=== PATIENT | female | born 1975 | race Caucasian/White ===

== ENCOUNTER 2018-09-30 05:46 | Day surgery (SDC) | payer BC ==
[2018-09-28 12:04] LABS: BASOPHILS # (AUTO) 0.1 X10'3 (0-0.2); BASOPHILS % (AUTO) 1.3 % (0-1); EOSINOPHILS # (AUTO) 0.3 X10'3 (0-0.9); EOSINOPHILS % (AUTO) 3.9 % (0-6); LYMPHOCYTES # (AUTO) 1.5 X10'3 (1.1-4.8); MEAN CORPUSCULAR HEMOGLOBIN 30.9 PG (27.0-31.0); MEAN CORPUSCULAR HGB CONC 34.4 g/dL (33.0-36.5); MEAN CORPUSCULAR VOLUME 89.7 FL (78-98); MONOCYTES # (AUTO) 0.4 X10'3 (0-0.9); MONOCYTES % (AUTO) 4.7 % (2-12); NEUTROPHILS # (AUTO) 6.2 X10'3 (1.8-7.7); NEUTROPHILS % (AUTO) 72.1 % (42-75); PRE OP HEMATOCRIT 41.5 % (35.0-45.0); PRE OP HEMOGLOBIN 14.3 g/dL (12.0-16.0); PRE OP PLATELET COUNT 265 X10'3 (140-440); RED BLOOD COUNT 4.63 X10'6 (4.20-5.60); RED CELL DISTRIBUTION WIDTH 12.7 % (11.5-14.5)
[2018-09-28 12:14] LABS: HCG SERUM QL NEGATIVE
[2018-09-28 12:16] LABS: ALBUMIN 3.7 G/DL (3.4-5.0); ALBUMIN/GLOBULIN RATIO 1.1 (1.1-1.5); ALKALINE PHOSPHATASE 85 IU/L (46-116); BLOOD UREA NITROGEN 7 MG/DL (7-18); BUN/CREATININE RATIO 8.2 (6.6-38.0); CALCIUM 8.9 MG/DL (8.5-10.1); CHLORIDE 108 MMOL/L (99-107); CREATININE 0.85 MG/DL (0.40-0.90); PRE OP ALT 62 U/L (30-65); PRE OP ANION GAP 9 (8-16); PRE OP AST 32 U/L (10-37); PRE OP BILIRUB, TOTAL 0.4 MG/DL (0.0-1.0); PRE OP GLUCOSE 96 MG/DL (70-104); PRE OP POTASSIUM 3.9 MMOL/L (3.4-5.1); PRE OP SODIUM 140 MMOL/L (135-145); TOTAL CARBON DIOXIDE 22.6 MMOL/L (24-32); eGFR 73 ML/MIN
[~2018-09-30] VITALS: Ht 170.2 cm; Wt 86.2 kg
[2018-09-30] VITALS (22 sets, daily range): BP systolic 95–137; BP diastolic 57–84
[~2018-09-30 05:46] MED LIST: ACET-2119 PO; SERT100T PO; albuterol 2.5 MG/3 ML nebule NEB ONE; ceFOXitin 2 GM ADDVANTGE BAG 50 ML IV ONE; famotidine 20mg tablet PO ONE; ringers solution, lacted 1,000 ML IV SCH
[2018-09-30] MEDS ORDERED: LIDOcaine 1% (10mg/ml) 2ml vial ONE (05:58)
[2018-09-30] MEDS ORDERED: ROPIVAcaine 0.5% (5mg/ml) 30ml vial ONE (06:36)
[2018-09-30] MEDS ORDERED: LIDOcaine 1% 30ml preserv. free vial ONE (06:36)
[2018-09-30] MEDS ORDERED: epiNEPHrine 1 mg/ml inj ONE (06:36)
[2018-09-30] MEDS ORDERED: midazolam 2 mg/2 ml injection ONE (07:21)
[2018-09-30] MEDS ORDERED: fentaNYL /PF 50mcg/ml 5ml ampule ONE (07:21)
[2018-09-30] MEDS ORDERED: ketorolac tromethamine 15mg/ml inj. ONE (07:45)
[2018-09-30] MEDS ORDERED: sevoflurane 250ml liquid IH ONE (07:45)
[2018-09-30] MEDS ORDERED: LIDOcaine 2% (20mg/ml) 5ml vial ONE (08:14)
[2018-09-30] MEDS ORDERED: fluoroscein sod 10% (100mg/ml) 5ml vial ONE (08:14)
[2018-09-30] MEDS ORDERED: dexamethasone sod phosphate 4mg/ml inj. ONE (08:14)
[2018-09-30] MEDS ORDERED: rocuronium 10mg/ml inj IV ONE (08:14)
[2018-09-30] MEDS ORDERED: propofol inj 20 ML IV ONE (08:14)
[2018-09-30] MEDS ORDERED: ondansetron/PF 4mg/2ml inj ONE (08:14)
[2018-09-30] MEDS ORDERED: ringers solution, lacted 1,000 ML IV SCH (08:43)
[2018-09-30] MEDS ORDERED: HYDROmorphone inj. 0.5 MG/0.5 ML DISP.SYRIN IV PRN (08:45)
[2018-09-30] MEDS ORDERED: ondansetron/PF 4mg/2ml inj IV PRN ×2 (08:45→09:55)
[2018-09-30] MEDS ORDERED: meperidine/PF 25mg/ml syringe IV PRN (08:45)
[2018-09-30] MEDS ORDERED: meperidine/PF 50mg/ml syringe ONE (09:51)
[2018-09-30] MEDS ORDERED: naloxone 0.4 mg/ml inj IV PRN (09:55)
[2018-09-30] MEDS ORDERED: normal saline 500ml IV soln 500 ML IV PRN (09:55)
[2018-09-30] MEDS ORDERED: temazepam 15mg capsule PO PRN (09:55)
[2018-09-30] MEDS ORDERED: LORazepam 2 mg/ml vial IV PRN (09:55)
[2018-09-30] MEDS ORDERED: CADD PCA waste documentation MC PRN (09:55)
[2018-09-30] MEDS ORDERED: metoclopramide 5 mg/ml inj IV PRN (09:55)
[2018-09-30] MEDS ORDERED: diphenhydrAMINE 50 mg/ml inj IV PRN (09:55)
[2018-09-30] MEDS ORDERED: mag hydrox/Alum hydrox/simeth 30ml oral suspension PO PRN (09:55)
--- NOTE | 2018-09-30 10:03 | NUR ---
Received from OR via surgical bed, accompanied by Anesthesiologist Alex and report given by Anesthesiolgist. Pt VS stable, complaining of pain, bandaids x3 CDI, aragon catheter draining with bright yellow urine. Moves all extrems, IVF 100cc/hr, SCDs placed on patient. Mask to 10L.
[2018-09-30] MEDS: HYDROmorphone inj. 0.5 MG/0.5 ML DISP.SYRIN IV PRN ×3 (10:11→11:53)
[2018-09-30] MEDS ORDERED: albuterol 60 PUFF/8GM Inhaler IH ONE (10:23)
[2018-09-30] MEDS ORDERED: neostigmine methylsulfate 1 MG/ML 10ml vial ONE (10:23)
[2018-09-30] MEDS ORDERED: glycopyrrolate 0.2mg/ml inj ONE (10:23)
[2018-09-30] MEDS: meperidine/PF 25mg/ml syringe IV PRN ×3 (10:26→11:39)
[2018-09-30] MEDS ORDERED: acetaminophen 1,000mg/100ml IV 100 ML IV ONE (11:20)
--- NOTE | 2018-09-30 11:20 | NUR ---
Patient's pain difficult to control with Demerol and MD Ney called and orders received for tylenol IV piggyback. Will place orders and administer.
[2018-09-30] MEDS ORDERED: HYDR-3686 PO (11:55)
[2018-09-30] MEDS ORDERED: IBUP-1986 PO (11:56)
--- NOTE | 2018-09-30 12:03 | NUR ---
Report called to receiving nurse. Transferred via ortho bed. Belongings on bed with patient along with patient chart. Special Issues communicated to receiving nurse Tracie SON. Call light given to patient, BLL, at bedside, O2 at 3L, first set of VS stable. Lap sites remain CDI, parul pad remains with minimal drainage. All pain meds given were reported to RN, and we discussed the need for toradol floor dose. RN states she would administer.
[2018-09-30] MEDS: ketorolac trometh. 30mg/ml inj. IV PRN ×2 (12:14→17:30)
[2018-09-30] MEDS ORDERED: HYDROmorphone 1 mg/ml syringe IV ONE (12:40)
[2018-09-30] MEDS: ringers solution, lacted 1,000 ML IV SCH ×2 (13:21→17:30)
[2018-09-30] MEDS: simethicone 80mg chew tab PO SCH ×2 (13:21→17:30)
[2018-09-30] MEDS: traMADol 50MG tablet PO PRN ×2 (14:00→18:58)
--- NOTE | 2018-09-30 14:14 | NUR ---
Received pt from PACU via bed. Lap sites x 3 to abdomen with band aids CDI. Pt very tearful, moaning and groaning in pain. Administered toradol. 30 mins later, pt still states is in excrutiating pain. Spoke with Dr Skaggs who stated she does not want to start pt on HAND WEAVER, per pt request in pre-op. (Pt stated she becomes psychotic). Dilaudid 1 mg x 1 time dose administered. Educated pt and spouse on aragon, diet, activity and IS.
--- NOTE | 2018-09-30 18:30 | NUR ---
Problems reprioritized. Patient report given, questions answered & plan of care reviewed with hamida.
--- NOTE | 2018-09-30 18:31 | NUR ---
Patient in room ORTHO 4014. I have received report from ADELAIDA Hodges and had the opportunity to ask questions and assume patient care.
[2018-09-30] MEDS: HYDROmorphone/NS 1 mg/ml CADD 50 ML IV SCH ×3 (20:05→23:00)
[2018-09-30] MEDS: docusate sod 100mg capsule PO SCH (20:10)
[2018-09-30] MEDS ORDERED: sertraline 50mg tablet PO SCH (21:00)
[2018-10-01] MEDS: HYDROmorphone/NS 1 mg/ml CADD 50 ML IV SCH ×5 (01:00→09:00)
[2018-10-01] MEDS: ringers solution, lacted 1,000 ML IV SCH (01:48)
--- NOTE | 2018-10-01 06:13 | NUR ---
Problems reprioritized. Patient report given, questions answered & plan of care reviewed with ADELAIDA Hodges.
[2018-10-01 06:18] LABS: BASOPHILS # (AUTO) 0.1 X10'3 (0-0.2); BASOPHILS % (AUTO) 0.7 % (0-1); EOSINOPHILS # (AUTO) 0.3 X10'3 (0-0.9); EOSINOPHILS % (AUTO) 2.2 % (0-6); HEMATOCRIT 38.2 % (35.0-45.0); LYMPHOCYTES # (AUTO) 1.8 X10'3 (1.1-4.8); LYMPHOCYTES % (AUTO) 12.8 % (21-51); MEAN CORPUSCULAR HEMOGLOBIN 30.9 PG (27.0-31.0); MEAN CORPUSCULAR VOLUME 90.8 FL (78-98); MEAN PLATELET VOLUME 8.9 FL (7.4-10.4); MONOCYTES # (AUTO) 0.8 X10'3 (0-0.9); MONOCYTES % (AUTO) 5.6 % (2-12); NEUTROPHILS # (AUTO) 11.1 X10'3 (1.8-7.7); NEUTROPHILS % (AUTO) 78.7 % (42-75); PLATELET COUNT 260 X10'3 (140-440); RED CELL DISTRIBUTION WIDTH 12.7 % (11.5-14.5); WHITE BLOOD COUNT 14.1 X10'3 (4.5-11.0)
[2018-10-01 06:20] LABS: ALBUMIN 3.2 G/DL (3.4-5.0); ANION GAP 8 (8-16); BLOOD UREA NITROGEN 8 MG/DL (7-18); BUN/CREATININE RATIO 9.1 (6.6-38.0); CALCIUM 8.6 MG/DL (8.5-10.1); CHLORIDE 107 MMOL/L (99-107); CREATININE 0.88 MG/DL (0.40-0.90); GLUCOSE 100 MG/DL (70-104); SODIUM 140 MMOL/L (135-145); eGFR 70 ML/MIN
--- NOTE | 2018-10-01 06:23 | NUR ---
Patient in room ORTHO 4014. I have received report from Gilberto and had the opportunity to ask questions and assume patient care.
[2018-10-01 06:30] VITALS: BP 89/61
[2018-10-01] MEDS: docusate sod 100mg capsule PO SCH (07:27)
[2018-10-01] MEDS: simethicone 80mg chew tab PO SCH ×2 (07:27→13:41)
[2018-10-01] MEDS: traMADol 50MG tablet PO PRN (07:29)
[2018-10-01] MEDS ORDERED: acetaminophen 325mg tablet PO SCH (08:00)
[2018-10-01 09:30] VITALS: BP 94/57
[2018-10-01] MEDS: HYDROmorphone 2mg tablet PO PRN ×2 (10:38→14:38)
[2018-10-01] MEDS ORDERED: CADD PCA waste documentation MC PRN (11:25)
--- NOTE | 2018-10-01 11:38 | NUR ---
Pt up to void but missed measuring container, urine went into toilet water.
--- NOTE | 2018-10-01 12:07 | NUR ---
Bladder scanned pt, post void residual 67 mls.
[2018-10-01 14:00] VITALS: BP 94/54
--- NOTE | 2018-10-01 15:48 | NUR ---
IV dc'd. Scripts, follow up appointments, warning signs, wound care gone over with pt. Educated on showers instead of baths, no swimming, nothing in vagina x 6 weeks. Instructed to call MD if unable to void. No heavy lifting over 10 lbs x 6 weeks. Discharged to home with daughter and via wc.
== END 2018-10-01 15:30 | disposition home or self-care (01) ==
LOC: PAS 05:46 → ORTHO 4S 12:12 → PAS 10-01 15:30
PROVIDERS: ATTEND Obstetrics & Gynecology
DX: N87.9 Dysplasia of cervix uteri, unspecified (principal); N83.01 Follicular cyst of right ovary; K66.0 Peritoneal adhesions (postprocedural) (postinfection); N39.3 Stress incontinence (female) (male); Z98.51 Tubal ligation status; Z98.890 Other specified postprocedural states; Z83.3 Family history of diabetes mellitus; Z82.49 Family history of ischemic heart disease and other diseases of the circulatory system; Z79.899 Other long term (current) drug therapy; F17.210 Nicotine dependence, cigarettes, uncomplicated; Z90.49 Acquired absence of other specified parts of digestive tract; Z88.6 Allergy status to analgesic agent
CPT/HCPCS: 36415; 57288; 58552; 71046; 80048; 80053; 82948; 84703; 85025; 86885; 86900; 86901; C1758; C1771; J0131; J0171; J0694; J1100; J1170; J1200; J1885; J2001; J2060; J2175; J2250; J2405; J2704; J2710; J3010; J7120; A4618; A6250; A7000; G0378; J2795; J3490

== ENCOUNTER 2022-03-12 09:47 | Emergency (ER) | payer BC ==
[~2022-03-12] VITALS: Ht 170.2 cm; Wt 71.0 kg
[~2022-03-12 09:47] MED LIST changes: -ACET-2119 PO; +HYDR-3686 PO; +IBUP-1986 PO; -albuterol 2.5 MG/3 ML nebule NEB ONE; -ceFOXitin 2 GM ADDVANTGE BAG 50 ML IV ONE; -famotidine 20mg tablet PO ONE; -ringers solution, lacted 1,000 ML IV SCH
--- NOTE | 2022-03-12 10:08 | NUR ---
SAW PT IN TRIAGE - WE WILL ORDER A CT HEAD
[2022-03-12] MEDS ORDERED: dexamethasone sod phosphate 10mg/ml inj IV STA (13:24)
[2022-03-12] MEDS ORDERED: diphenhydrAMINE 50 mg/ml inj IV ONE (13:25)
[2022-03-12] MEDS ORDERED: normal saline 1000ML IV soln IVB ONE (13:35)
[2022-03-12] MEDS ORDERED: ketorolac trometh. 30mg/ml inj. IV ONE (13:36)
[2022-03-12] MEDS ORDERED: haloperidol lactate 5mg/ml inj IM ONE (13:37)
[2022-03-12 13:41] LABS: BASOPHILS # (AUTO) 0.1 X10'3 (0-0.2); EOSINOPHILS # (AUTO) 0.2 X10'3 (0-0.9); EOSINOPHILS % (AUTO) 2.3 % (0-6); HEMATOCRIT 42.4 % (35.0-45.0); HEMOGLOBIN 14.3 g/dl (12.0-16.0); LYMPHOCYTES # (AUTO) 1.7 X10'3 (1.1-4.8); LYMPHOCYTES % (AUTO) 24.7 % (21-51); MEAN CORPUSCULAR HEMOGLOBIN 31.9 PG (27.0-31.0); MEAN CORPUSCULAR HGB CONC 33.8 g/dL (33.0-36.5); MEAN CORPUSCULAR VOLUME 94.5 FL (78-98); MEAN PLATELET VOLUME 8.8 FL (7.4-10.4); MONOCYTES # (AUTO) 0.5 X10'3 (0-0.9); MONOCYTES % (AUTO) 6.9 % (2-12); NEUTROPHILS # (AUTO) 4.6 X10'3 (1.8-7.7); NEUTROPHILS % (AUTO) 65.1 % (42-75); PLATELET COUNT 248 X10'3 (140-440); RED BLOOD COUNT 4.48 X10'6 (4.20-5.60); RED CELL DISTRIBUTION WIDTH 13.3 % (11.5-14.5)
[2022-03-12 13:49] LABS: ALANINE AMINOTRANSFERASE 32 U/L (12-78); ALBUMIN 3.6 G/DL (3.4-5.0); ALBUMIN/GLOBULIN RATIO 1.2 (1.1-1.5); ALKALINE PHOSPHATASE 60 IU/L (46-116); ANION GAP 9 (8-16); ASPARTATE AMINO TRANSFERASE 18 U/L (10-37); BILIRUBIN,TOTAL 0.3 MG/DL (0.1-1.0); BLOOD UREA NITROGEN 16 MG/DL (7-18); CALCIUM 8.3 MG/DL (8.5-10.1); CHLORIDE 106 MMOL/L (99-107); GLUCOSE 98 MG/DL (70-104); SODIUM 139 MMOL/L (135-145); TOTAL CARBON DIOXIDE 23.8 MMOL/L (24-32); TOTAL PROTEIN 6.6 G/DL (6.4-8.2); eGFR 77 ML/MIN
[2022-03-12 14:22] LABS: C-REACTIVE PROTEIN < 0.05 MG/DL (0.0-0.5)
[2022-03-12 15:13] VITALS: BP 115/75
== END 2022-03-12 15:09 | disposition home or self-care (01) ==
LOC: ER 09:48
DX: R51.9 Headache, unspecified (principal); Z88.5 Allergy status to narcotic agent; Z88.8 Allergy status to other drugs, medicaments and biological substances; Z98.51 Tubal ligation status
CPT/HCPCS: 36415; 70450; 80053; 85025; 85651; 86140; 96361; 96372; 96374; 96375; 99285; J1100; J1200; J1630; J1885; J7030

== ENCOUNTER 2025-01-24 07:31 | Day surgery (SDC) | payer BC ==
[2025-01-17 14:43] LABS: MEAN PLATELET VOLUME 8.0 FL (7.4-10.4); PRE OP HEMATOCRIT 38.5 % (35.0-45.0); PRE OP HEMOGLOBIN 13.7 g/dL (12.0-16.0); PRE OP PLATELET COUNT 258 X10'3 (140-440); PRE OP WHITE BLOOD COUNT 5.8 10'3 (4.8-10.8); RED CELL DISTRIBUTION WIDTH 12.4 % (11.5-14.5)
[2025-01-17 15:01] LABS: CREATININE 0.84 MG/DL (0.40-0.90); PRE OP ALT 9 U/L (30-65); PRE OP ANION GAP 9 (8-16); PRE OP AST 10 U/L (10-37); PRE OP BILIRUB, TOTAL 0.4 MG/DL (0.0-1.0); PRE OP GLUCOSE 88 MG/DL (70-104); PRE OP POTASSIUM 3.9 MMOL/L (3.4-5.1); PRE OP SODIUM 144 MMOL/L (135-145); TOTAL CARBON DIOXIDE 26.5 MMOL/L (24-32); eGFR 72 ML/MIN
[2025-01-24] VITALS (15 sets, daily range): BP systolic 101–120; BP diastolic 56–80; PULSE 73–97; RESP 10–24; TEMP 97.7; O2SAT 92–100
[~2025-01-24] VITALS: Ht 170.2 cm; Wt 66.6 kg
[2025-01-24] MEDS: ceFAZolin 2gm/dext,iso 50mL 50 ML IV ONE (05:30)
[~2025-01-24 07:31] MED LIST changes: +ACET325T55 PO; +ALPR0.255 PO; +ESCI-8 PO; +ESTR1PAT95 TD; +FENO48TA10 PO; -HYDR-3686 PO; -IBUP-1986 PO; +PENT100C9 PO; +PROG200C11 PO; -SERT100T PO; +THYR60TA2 PO
[2025-01-24] MEDS: ringers solution, lacted 1,000 ML IV SCH (08:01)
[2025-01-24] MEDS ORDERED: LIDOcaine 1% 30ml preserv. free vial ONE (09:45)
[2025-01-24] MEDS ORDERED: BUPIVAcaine 2.5mg/ml inj 50ml vial (contains preservative) ONE (09:45)
[2025-01-24] MEDS ORDERED: midazolam 1 mg/ML 2ml injection ONE (09:55)
[2025-01-24] MEDS ORDERED: fentaNYL /PF 50mcg/ml 5ml ampule ONE (09:55)
[2025-01-24] MEDS ORDERED: propofol inj 20 ML IV ONE (10:04)
[2025-01-24] MEDS ORDERED: LIDOcaine 2% (20mg/ml) 5ml vial ONE (10:04)
[2025-01-24] MEDS ORDERED: rocuronium 10mg/ml inj IV ONE (10:04)
[2025-01-24] MEDS ORDERED: dexamethasone sod phosphate 4mg/ml inj. ONE (10:05)
[2025-01-24] MEDS ORDERED: ondansetron/PF 4mg/2ml inj ONE (10:05)
[2025-01-24] MEDS: LIDOcaine 1% 30ml preserv. free vial IJ ONE (10:15)
[2025-01-24] MEDS: BUPIVAcaine/PF 2.5 mg/ml (0.25%) 30ml vial IJ ONE (10:15)
[2025-01-24] MEDS ORDERED: ondansetron/PF 4mg/2ml inj IV PRN (10:20)
[2025-01-24] MEDS ORDERED: HYDROmorphone/PF 0.2 MG/ML SYRINGE IV PRN ×2 (10:20)
[2025-01-24] MEDS ORDERED: hydrALAZINE 20mg/ml inj. IV PRN (10:20)
[2025-01-24] MEDS ORDERED: ringers solution, lacted 1,000 ML IV SCH (10:20)
[2025-01-24] MEDS ORDERED: labetalol 20mg/4ml (5mg/ml) syringe IV PRN (10:20)
[2025-01-24] MEDS ORDERED: fentaNYL/PF 50MCG/1 ML 2ML syringe IV PRN (10:20)
[2025-01-24] MEDS ORDERED: glycopyrrolate 0.2mg/ml inj ONE (10:54)
[2025-01-24] MEDS: fentaNYL/PF 50MCG/1 ML 2ML syringe IV PRN (11:04)
--- NOTE | 2025-01-24 11:26 | OPERATIVE REPORT ---
Operative Report Providers to CC: ANKIT NEGRETE MD ~ Date of Procedure: Jan 24, 2025 Pre-Operative Diagnosis: Left inguinal hernia Post-Operative Diagnosis SAME as PRE-Op Procedure Performed Robotic assisted, laparoscopic left inguinal hernia repair with mesh Surgeon: Ankit Negrete MD FACS Glaze Supervisor None Anesthesiologist: Lizeth Garcia Type of Anesthesia: General Findings: Small indirect left inguinal hernia Wound class I Complications None Prosthetics\Implants used: Medium left Dextile mesh Estimated Blood Loss: Minimal Specimen Removed: None Description of Procedure: Patient was brought to the operating room and identified by the nursing staff and the attending physician. Patient was placed supine and general anesthesia was induced. Patient's abdomen was prepped and draped in standard sterile fashion. Preoperative antibiotics were given. Veress needle technique was used in the abdomen was insufflated without incident. Abdomen was entered through the left side without issue. Laparoscope was inserted and abdomen surveyed. Additional 8.5 mm robotic trochars were placed under laparoscopic guidance following administration of local anesthetic. The [employer] robotic arm was docked to the patient and instruments placed intra-abdominally under laparoscopic visualization. The right hemipelvis was examined and showed no evidence of right inguinal hernia. Preperitoneal flap was created and carried down to the symphysis pubis. The retropubic space of [place] was developed and the bladder swept medially. Dissection was carried out laterally until an indirect left hernia sac was identified. This was fairly small in size with a small associated inguinal canal lipoma. Hernia sac was completely mobilized and reduced. On the opposite side of the peritoneal flap, the round ligament was divided to allow peritoneal mobilization. It had been previously divided from the previous hysterectomy. The critical view of the myopectineal orifice was achieved. Dissection was carried out laterally to allow space for mesh deployment. A medium Dextile mesh and suture was passed intra-abdominally. Mesh was laid in the preperitoneal space covering both indirect, direct, and potential femoral and obturator hernias. Mesh laid without wrinkles or folds. 3 tacking sutures using 0 Ethibond were used to fix the mesh at the symphysis pubis, rectus abdominis, and just anterior to the anterior superior iliac spine. The peritoneal rent was then closed with running, 2/0, absorbable locking suture. [place] were retrieved. Abdomen was deflated and secondary trochars removed. Skin incisions were closed with 4-0 Monocryl sutures in a subcuticular fashion. Sterile dressings were applied. Patient was awakened and taken to the postanesthesia care unit in stable condition. Counts repoted as correct: Yes ANKIT NEGRETE MD Jan 24, 2025 11:26
[2025-01-24] MEDS ORDERED: HYDROmorphone inj. 0.5 MG/0.5 ML DISP.SYRIN IV PRN (11:35)
[2025-01-24] MEDS: acetaminophen 1,000mg/100ml IV 100 ML IV PRN (11:36)
[2025-01-24] MEDS: HYDROmorphone inj. 0.5 MG/0.5 ML DISP.SYRIN IV PRN (11:38)
== END 2025-01-24 12:54 | disposition home or self-care (01) ==
LOC: PAS 07:31
PROVIDERS: ATTEND Surgery
DX: K40.90 Unilateral inguinal hernia, without obstruction or gangrene, not specified as recurrent (principal); F41.9 Anxiety disorder, unspecified; F32.A Depression, unspecified; R73.09 Other abnormal glucose; Z90.49 Acquired absence of other specified parts of digestive tract; Z90.710 Acquired absence of both cervix and uterus
CPT/HCPCS: 36415; 49650; 80053; 82948; 85025; C1781; J0131; J1100; J1171; J2003; J2250; J2405; J2704; J2710; J3010; J3490; J7030; J7120; S2900; Z7506; Z7508; Z7512; A4215; A4615; A4618